=== PATIENT | female | born 1985 | race Caucasian/White ===

== ENCOUNTER 2016-07-31 02:47 | Emergency (ER) | payer BC ==
[2016-07-31 07:11] LABS: HEMOGLOBIN 12.7 gm/dl (12.3-15.3); RED BLOOD COUNT 4.2 M/UL (4.00-5.10); WHITE BLOOD COUNT 6.1 K/UL (4.5-11.0)
[2016-07-31 07:30] LABS: BUN/CREATININE RATIO 19 (0-10)
== END 2016-07-31 10:41 | disposition home or self-care (01) ==
LOC: ER1 02:47
PROVIDERS: Physician Assistant
DX: O46.91 Antepartum hemorrhage, unspecified, first trimester (principal); Z3A.00 Weeks of gestation of pregnancy not specified
CPT/HCPCS: 36415; 76817; 80053; 81001; 84702; 84703; 85025; 86900; 86901; 87086; 87210; 99284